=== PATIENT | male | born 1960 | race American Indian/Alaskan Native ===

== ENCOUNTER 2018-09-14 21:52 | Emergency (ER) | payer SELFPAY ==
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
[2018-09-14] MEDS ORDERED: PERCOCET 5/325 PO ONE (22:11)
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
[2018-09-14 23:17] VITALS: BP 141/80
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
== END 2018-09-15 00:27 | disposition home or self-care (01) ==
LOC: ED 21:52
DX: S16.1XXA Strain of muscle, fascia and tendon at neck level, initial encounter (principal); F17.200 Nicotine dependence, unspecified, uncomplicated; V49.49XA Driver injured in collision with other motor vehicles in traffic accident, initial encounter; Y93.89 Activity, other specified; Y92.488 Other paved roadways as the place of occurrence of the external cause; Y99.8 Other external cause status
CPT/HCPCS: 70450; 71045; 72125; 99284

== ENCOUNTER 2021-03-28 02:48 | Observation (INO) | payer OTHER ==
[2021-03-28] MEDS ORDERED: ASPIRIN 325 MG TAB PO ONE (03:07)
[2021-03-28] MEDS ORDERED: NITROGLYCERIN 0.4 MG TAB SUBL SL ONE (03:36)
[2021-03-28 03:39] LABS: Basophils % (Auto) 0.6 % (0.0-1.8); Eosinophils # (Auto) 0.1 K/mm3 (0.0-0.4); Eosinophils % (Auto) 2.4 % (0.0-4.3); Hematocrit 41.7 % (35.5-45.6); Hemoglobin 13.9 gm/dl (11.8-15.2); Lymphocytes # (Auto) 2.1 K/mm3 (1.2-5.4); Lymphocytes % (Auto) 34.2 % (13.4-35.0); Mean Corpuscular HGB Conc 34 % (32-34); Mean Corpuscular Volume 96 fl (84-94); Monocytes # (Auto) 0.7 K/mm3 (0.0-0.8); Monocytes % (Auto) 11.3 % (0.0-7.3); Platelet Count 210 K/mm3 (140-440); Red Blood Count 4.35 M/mm3 (3.65-5.03); Red Cell Distribution Width 13.1 % (13.2-15.2)
--- NOTE | 2021-03-28 03:39 | Emergency Department Report ---
ED Chest Pain HPI - General Chief Complaint: Chest Pain Stated Complaint: chest pain Time Seen by Provider: 03/28/21 03:23 Source: patient Mode of arrival: Ambulatory Limitations: No Limitations - History of Present Illness Initial Comments: Patient is 60 years old male with no significant past medical history. Patient presented to the emergency room complaining of left sided chest pain, heaviness in nature with radiation to the left upper extremity. Patient stated that pain started after he finished work. Patient stated that he never had any pain like this before. Patient denied any fever or chills. No shortness of breath. MD Complaint: chest pain -: Last night Onset: during rest Pain Location: left chest Pain Radiation: LUE Severity: moderate Severity scale (0 -10): 8 Quality: tightness, heaviness Consistency: constant Improves With: nothing Worsens With: nothing - Related Data Previous Rx's Medication Instructions Recorded Last Taken Type Cyclobenzaprine [Flexeril] 10 mg PO TID PRN #20 tablet 09/15/18 Unknown Rx Ibuprofen [Motrin] 800 mg PO Q8HR PRN #20 tablet 09/15/18 Unknown Rx Allergies Allergy/AdvReac Type Severity Reaction Status Date / Time No Known Allergies Allergy Verified 03/28/21 03:27 Heart Score - HEART Score History: Moderately suspicious EKG: Non-specific Age: 45-65 Risk factors: 1-2 risk factors Troponin: < normal limit HEART Score: 4 - EKG Read Time Time EKG Completed: 02:55 EKG Read Time: 02:58 - Critical Actions Critical Actions: 4-6 pts:12-16.6% risk of adverse cardiac event. Should be admitted ED Review of Systems ROS: Stated complaint: chest pain Other details as noted in HPI Comment: All other systems reviewed and negative Constitutional: denies: chills, fever Respiratory: denies: cough, shortness of breath, SOB with exertion Cardiovascular: chest pain. denies: palpitations, dyspnea on exertion Musculoskeletal: denies: back pain Neurological: denies: headache, weakness, numbness, paresthesias, confusion ED Past Medical Hx - Past Medical History Previous Medical History?: No - Surgical History Past Surgical History?: No - Social History Smoking Status: Current Every Day Smoker Substance Use Type: None - Medications Home Medications: Home Medications Medication Instructions Recorded Confirmed Last Taken Type Cyclobenzaprine [Flexeril] 10 mg PO TID PRN #20 tablet 09/15/18 Unknown Rx Ibuprofen [Motrin] 800 mg PO Q8HR PRN #20 tablet 09/15/18 Unknown Rx ED Physical Exam - General Limitations: No Limitations General appearance: alert, in no apparent distress - Head Head exam: Present: atraumatic, normocephalic, normal inspection - Eye Eye exam: Present: normal appearance - ENT ENT exam: Present: normal exam, normal orophraynx, mucous membranes moist - Neck Neck exam: Present: normal inspection, full ROM. Absent: tenderness, meningismus - Respiratory Respiratory exam: Present: normal lung sounds bilaterally - Cardiovascular Cardiovascular Exam: Present: regular rate, normal rhythm, normal heart sounds - GI/Abdominal GI/Abdominal exam: Present: soft, normal bowel sounds. Absent: distended, tenderness, guarding, rebound, rigid, organomegaly, mass, bruit, pulsatile mass, hernia - Extremities Exam Extremities exam: Present: normal inspection, full ROM, normal capillary refill. Absent: pedal edema, calf tenderness - Back Exam Back exam: Present: normal inspection, full ROM. Absent: CVA tenderness (R), CVA tenderness (L) - Neurological Exam Neurological exam: Present: alert, oriented X3, CN II-XII intact - Psychiatric Psychiatric exam: Present: normal mood - Skin Skin exam: Present: warm, intact, normal color ED Course Vital Signs 03/28/21 03/28/21 03/28/21 03:05 03:18 03:46 Temperature 98.2 F Pulse Rate 65 64 62 Respiratory 18 23 16 Rate Blood Pressure 123/69 157/89 O2 Sat by Pulse 100 100 100 Oximetry 03/28/21 03:56 Temperature Pulse Rate 68 Respiratory Rate Blood Pressure 157/89 O2 Sat by Pulse Oximetry ED Medical Decision Making - Lab Data Result diagrams: 03/28/21 03:29 03/28/21 03:29 - EKG Data -: EKG Interpreted by Ak EKG shows normal: sinus rhythm Rate: normal - EKG Data Interpretation: no acute changes - Radiology Data Radiology results: report reviewed - Medical Decision Making Patient is 60 years old male with no significant past medical history. Patient presented to the emergency room complaining of left sided chest pain, heaviness in nature with radiation to the left upper extremity. Patient stated that pain started after he finished work. Patient stated that he never had any pain like this before. Patient denied any fever or chills. No shortness of breath. EKG showed no ST elevation. Chest x-ray is unremarkable. Labs reviewed and is negative including first troponin. Patient received aspirin and nitroglycerin and stated that his pain is better. Discussed the patient with Dr. Flores, he agreed to admit the patient to medical service for further management. Critical care attestation.: If time is entered above; I have spent that time in minutes in the direct care of this critically ill patient, excluding procedure time. ED Disposition Clinical Impression: Acute chest pain Disposition: 09 OP ADMIT IP TO THIS HOSP Is pt being admited?: Yes Condition: Stable Instructions: Chest Pain (ED) Referrals: PRIMARY CARE, [Primary Care Provider] - 3-5 Days
--- NOTE | 2021-03-28 03:42 | XRay Report ---
CHEST 2 VIEWS INDICATION / CLINICAL INFORMATION: Chest pain. COMPARISON: 09/14/18. FINDINGS: SUPPORT DEVICES: None. HEART / MEDIASTINUM: The heart size and pulmonary vasculature are normal. The aorta is normal in [place]per daniel. LUNGS / PLEURA: No significant pulmonary or pleural abnormality. No pneumothorax. ADDITIONAL FINDINGS: No significant additional findings. IMPRESSION: No acute abnormality or significant change. Signer Name: Randy Chaparro MD Signed: 03/28/2021 3:37 AM Workstation Name: [id number]
[2021-03-28 04:07] LABS: Alanine Aminotransferase 13 units/L (7-56); Albumin 4.1 g/dL (3.9-5); BUN/Creatinine Ratio 12; Blood Urea Nitrogen 13 mg/dL (9-20); Calcium 8.8 mg/dL (8.4-10.2); Hemolysis Index 31
[2021-03-28] MEDS ORDERED: ALUM-MAG HYDROXIDE-SIMETHICONE 200-200-20MG/5ML ORAL LIQD 30 ML PO PRN (05:02)
[2021-03-28] MEDS ORDERED: METOCLOPRAMIDE 10 MG/2 ML INJ IV PRN (05:02)
[2021-03-28] MEDS ORDERED: traMADol 50 MG TAB PO PRN (05:02)
[2021-03-28] MEDS ORDERED: NITROGLYCERIN 0.4 MG TAB SUBL SL PRN (05:02)
[2021-03-28] MEDS ORDERED: SENNOSIDES 8.6 MG TAB PO PRN (05:02)
[2021-03-28] MEDS ORDERED: ONDANSETRON 4 MG/2 ML INJ IV PRN (05:02)
[2021-03-28] MEDS ORDERED: ACETAMINOPHEN 325 MG TAB PO PRN ×2 (05:02)
[2021-03-28] MEDS ORDERED: MAGNESIUM HYDROXIDE (MOM) ORAL LIQD UDC PO PRN (05:02)
[2021-03-28] MEDS ORDERED: traZODone 50 MG TAB PO PRN (05:09)
[2021-03-28] MEDS ORDERED: hydrALAZINE 20 MG/1 ML INJ IV PRN ×2 (05:09→06:04)
--- NOTE | 2021-03-28 05:19 | History and Physical Report ---
History of Present Illness Date of examination: 03/28/21 Date of admission: 03/28/21 Chief complaint: Chest pain History of present illness: Patient is 60 years old male with no significant past medical history. Patient presented to the emergency room complaining of left sided chest pain, heaviness in nature with radiation to the left upper extremity. Patient stated that pain started after he finished work. Patient stated that he never had any pain like this before. Patient denied any fever or chills. No shortness of breath. ED work-up shows WBC 6.2, hemoglobin 13.9, platelets 210 sodium 139, potassium 4.5, creatinine 1.1, serum glucose 69, calcium 8.8. EKG checks x-ray and troponin are all negative. Patient seen at bedside in the ED. Patient on room air. Patient admits chest pain like pressure pain that radiates to the left shoulder and to the left. Pain level 8/10. I reviewed lab, medication record, and vital signs. Blood pressure is mildly elevated patient denies history of hypertension. He admits tobacco use but denies chronic alcohol use or illicit drug. Echocardiogram ordered and homemaking rehabilitation consultant consulted. Past History Past Surgical History: No surgical history Social history: smoking Family history: no significant family history Medications and Allergies Allergies Allergy/AdvReac Type Severity Reaction Status Date / Time No Known Allergies Allergy Verified 03/28/21 03:27 Home Medications Medication Instructions Recorded Confirmed Last Taken Type Cyclobenzaprine [Flexeril] 10 mg PO TID PRN #20 tablet 09/15/18 Unknown Rx Ibuprofen [Motrin] 800 mg PO Q8HR PRN #20 tablet 09/15/18 Unknown Rx Active Meds: Active Medications Acetaminophen (Acetaminophen 325 Mg Tab) 650 mg PO Q4H PRN PRN Reason: Pain MILD(1-3)/Fever >100.5/GEORGE Acetaminophen (Acetaminophen 325 Mg Tab) 650 mg PO Q6H PRN PRN Reason: Pain, Mild (1-3) Al Hydrox/Mg Hydrox/Simethicone (Alum-Mag Hydroxide-Simethicone [phone]/5ml Oral Liqd 30 Ml) 30 ml PO Q4H PRN PRN Reason: Indigestion Aspirin (Aspirin 81 Mg Tab Chew) 81 mg PO QDAY MARC Atorvastatin Calcium (Atorvastatin 40 Mg Tab) 40 mg PO QHS MARC Famotidine (Famotidine 20 Mg/2 Ml Inj) 20 mg IV BID MARC Hydralazine HCl (Hydralazine 20 Mg/1 Ml Inj) 5 mg IV Q4HR PRN PRN Reason: Hypertension Magnesium Hydroxide (Magnesium Hydroxide (Mom) Oral Liqd Udc) 30 ml PO Q4H PRN PRN Reason: Constipation Metoclopramide HCl (Metoclopramide 10 Mg/2 Ml Inj) 10 mg IV Q6H PRN PRN Reason: Nausea And Vomiting Nitroglycerin (Nitroglycerin 0.4 Mg Tab Subl) 0.4 mg SL Q5M PRN PRN Reason: Chest Pain Ondansetron HCl (Ondansetron 4 Mg/2 Ml Inj) 4 mg IV Q8H PRN PRN Reason: Nausea And Vomiting Senna (Sennosides 8.6 Mg Tab) 8.6 mg PO Q12HR PRN PRN Reason: Constipation Sodium Chloride (Sodium Chloride 0.9% 10 Ml Flush Syringe) 10 ml IV BID MARC Sodium Chloride (Sodium Chloride 0.9% 10 Ml Flush Syringe) 10 ml IV PRN PRN PRN Reason: LINE FLUSH Tramadol HCl (Tramadol 50 Mg Tab) 50 mg PO Q6H PRN PRN Reason: Pain, Moderate (4-6) Trazodone HCl (Trazodone 50 Mg Tab) 50 mg PO QHS PRN PRN Reason: Insomnia Review of Systems Ears, nose, mouth and throat: no epistaxis, no bleeding gums Cardiovascular: chest pain, rapid/irregular heart beat Respiratory: no hemoptysis Gastrointestinal: no abdominal pain Genitourinary Male: no hematuria Rectal: no hemorrhoids Musculoskeletal: no neck stiffness Neurological: no vertigo, no headaches Psychiatric: no memory loss Endocrine: no thyroid mass Hematologic/Lymphatic: no easy bruising, no easy bleeding Allergic/Immunologic: no urticaria Exam - Constitutional Vitals: Temp Pulse Resp BP Pulse Ox 98.2 F 68 16 157/89 100 03/28/21 03:05 03/28/21 03:56 03/28/21 03:46 03/28/21 03:56 03/28/21 03:46 General appearance: Present: mild distress, well-nourished - EENT Eyes: Present: PERRL ENT: hearing intact, clear oral mucosa - Neck Neck: Present: supple, normal ROM - Respiratory Respiratory effort: normal Respiratory: bilateral: CTA - Cardiovascular Heart rate: 68 Heart Sounds: Present: S1 & S2. Absent: rub, click - Extremities Extremities: pulses symmetrical, No edema Peripheral Pulses: within normal limits - Abdominal General gastrointestinal: Present: soft, non-tender, non-distended, normal bowel sounds Male genitourinary: Present: normal - Integumentary Integumentary: Present: clear, warm, dry - Musculoskeletal Musculoskeletal: gait normal, strength equal bilaterally - Psychiatric Psychiatric: appropriate mood/affect, intact judgment & insight, cooperative - Neurologic Neurologic: CNII-XII intact, moves all extremities - Allied Health Allied health notes reviewed: nursing HEART Score - HEART Score EKG: Non-specific Age: 45-65 Risk factors: 1-2 risk factors Troponin: Troponin T < 0.010 ng/mL (0.00-0.029) 03/28/21 03:29 Troponin: < normal limit - Critical Actions Critical Actions: 4-6 pts:12-16.6% risk of adverse cardiac event. Should be admitted Results - Labs CBC & Chem 7: 03/28/21 03:29 03/28/21 03:29 Labs: Abnormal lab results 03/28/21 03/28/21 Range/Units 03:29 03:29 MCV 96 H (84-94) fl RDW 13.1 L (13.2-15.2) % [place] % (Auto) 11.3 H (0.0-7.3) % Carbon Dioxide 31 H (22-30) mmol/L Glucose 69 L (75-100) mg/dL Assessment and Plan - Patient Problems (1) Acute chest pain Current Visit: Yes Status: Acute Plan to address problem: sublingual ntro, ASA, statin and PRN oxygen supplement ECHOCARDIOGRAM-f/u with result Housekeeping Associate consulted Chest x-ray, EKG and troponin -all negative Patient on room air. Chest Pain level 8/10 (2) Tobacco use Current Visit: Yes Status: Acute Plan to address problem: discussed tobacco use cessation cardiovascular and neoplasm syndrome of tobacco use explained to pation Patient voiced understanding (3) Elevated blood-pressure reading without diagnosis of hypertension Current Visit: Yes Status: Acute Plan to address problem: Likely secondary to left sided chest pain/anxiety Patient denies any history of high blood pressure Monitor blood pressure PRN hydrazine (4) DVT prophylaxis Current Visit: Yes Status: Acute Plan to address problem: Subcutaneous Lovenox
--- NOTE | 2021-03-28 09:14 | Consultation ---
History of Present Illness Consult date: 03/28/21 Requesting physician: VIKTOR MCCLELLAN Consult reason: chest pain History of present illness: Pt is a 60-year-old AA male, previously unknown to our practice, who presented with complaints of chest wall "soreness" that started last night. Pt states he was lifting some heavy objects at work yesterday and believes this contributed to his pain. He reports the pain has been constant since last night, mostly on the left side of his chest wall and up to his left shoulder. Worse with deep inspiration. Pain is reproducible with palpation of the chest wall as well. No additional cardiac complaints. Trop neg x 1. ECG reveals NSR, no acute ischemic changes. HEART Score: 2 Past History Past Medical History: No medical history Past Surgical History: No surgical history Social history: smoking. denies: alcohol abuse Family history: no significant family history Medications and Allergies Allergies Allergy/AdvReac Type Severity Reaction Status Date / Time No Known Allergies Allergy Verified 03/28/21 03:27 Home Medications Medication Instructions Recorded Confirmed Last Taken Type Cyclobenzaprine [Flexeril] 10 mg PO TID PRN #20 tablet 09/15/18 Unknown Rx Ibuprofen [Motrin] 800 mg PO Q8HR PRN #20 tablet 09/15/18 Unknown Rx Active Meds: Active Medications Acetaminophen (Acetaminophen 325 Mg Tab) 650 mg PO Q4H PRN PRN Reason: Pain MILD(1-3)/Fever >100.5/GEORGE Al Hydrox/Mg Hydrox/Simethicone (Alum-Mag Hydroxide-Simethicone 200-540-97pr/5ml Oral Liqd 30 Ml) 30 ml PO Q4H PRN PRN Reason: Indigestion Aspirin (Aspirin 81 Mg Tab Chew) 81 mg PO QDAY MARC Atorvastatin Calcium (Atorvastatin 40 Mg Tab) 40 mg PO QHS [facility] Enoxaparin Sodium (Enoxaparin 40 Mg/0.4 Ml Inj) 40 mg SUB-Q DAILY [facility]; Protocol Last Admin: 03/28/21 09:00 Dose: 40 mg Documented by: Famotidine (Famotidine 20 Mg/2 Ml Inj) 20 mg IV BID MARC Last Admin: 03/28/21 09:00 Dose: 20 mg Documented by: Hydralazine HCl (Hydralazine 20 Mg/1 Ml Inj) 5 mg IV Q4HR PRN PRN Reason: SBP >/=160; DBP >/=100 Magnesium Hydroxide (Magnesium Hydroxide (Mom) Oral Liqd Udc) 30 ml PO Q4H PRN PRN Reason: Constipation Metoclopramide HCl (Metoclopramide 10 Mg/2 Ml Inj) 10 mg IV Q6H PRN PRN Reason: Nausea And Vomiting Nitroglycerin (Nitroglycerin 0.4 Mg Tab Subl) 0.4 mg SL Q5M PRN PRN Reason: Chest Pain Last Admin: 03/28/21 06:00 Dose: 0.4 mg Documented by: Ondansetron HCl (Ondansetron 4 Mg/2 Ml Inj) 4 mg IV Q8H PRN PRN Reason: Nausea And Vomiting Senna (Sennosides 8.6 Mg Tab) 8.6 mg PO Q12HR PRN PRN Reason: Constipation Sodium Chloride (Sodium Chloride 0.9% 10 Ml Flush Syringe) 10 ml IV BID MARC Last Admin: 03/28/21 09:00 Dose: 10 ml Documented by: Sodium Chloride (Sodium Chloride 0.9% 10 Ml Flush Syringe) 10 ml IV PRN PRN PRN Reason: LINE FLUSH Tramadol HCl (Tramadol 50 Mg Tab) 50 mg PO Q6H PRN PRN Reason: Pain, Moderate (4-6) Trazodone HCl (Trazodone 50 Mg Tab) 50 mg PO QHS PRN PRN Reason: Insomnia Review of Systems Constitutional: no fever, no chills, no sweats, no fatigue Ears, nose, mouth and throat: no nasal congestion, no sore throat Cardiovascular: chest pain, no orthopnea, no palpitations, no rapid/irregular heart beat, no edema, no syncope, no lightheadedness, no shortness of breath, no dyspnea on exertion, no paroxysmal nocturnal dyspnea, no claudication Respiratory: no cough, no shortness of breath, no dyspnea on exertion Gastrointestinal: no abdominal pain, no nausea, no vomiting, no diarrhea, no constipation Genitourinary Male: no dysuria, no flank pain Musculoskeletal: no neck stiffness, no neck pain, no myalgias Integumentary: no rash, no wounds Neurological: no head injury, no paralysis, no weakness, no parathesias, no numbness, no tingling, no seizures, no syncope, no vertigo, no headaches Endocrine: no cold intolerance, no heat intolerance, no polydipsia, no polyuria Hematologic/Lymphatic: no easy bruising, no easy bleeding Allergic/Immunologic: no urticaria, no wheezing Physical Examination Last Vital Signs Temp 99.3 F 03/28/21 07:56 Pulse 75 03/28/21 07:56 Resp 18 03/28/21 07:56 BP 128/84 03/28/21 07:56 Pulse Ox 97 03/28/21 07:56 General appearance: no acute distress HEENT: Positive: EOMI, Normocephaly, Mucus Membranes Moist Neck: Positive: neck supple, trachea midline. Negative: JVD/HJR Cardiac: Positive: Reg Rate and Rhythm, S1/S2. Negative: Audible Murmur Lungs: Positive: clear to auscultation Neuro: Positive: Grossly Intact Abdomen: Positive: Soft, Active Bowel Sounds. Negative: Tender Skin: Negative: Rash Musculoskeletal: Normal Range of Motion Extremities: Present: upper extr. pulses, lower extr. pulses. Absent: edema Results 03/28/21 03:29 03/28/21 03:29 Cardiac Enzymes 03/28/21 Range/Units 03:29 AST 15 (5-40) units/L CBC 03/28/21 Range/Units 03:29 WBC 6.2 (4.5-11.0) K/mm3 RBC 4.35 (3.65-5.03) M/mm3 Hgb 13.9 (11.8-15.2) gm/dl Hct 41.7 (35.5-45.6) % Plt Count 210 (140-440) K/mm3 Lymph # (Auto) 2.1 (1.2-5.4) K/mm3 [place]ley # (Auto) 0.7 (0.0-0.8) K/mm3 Eos # (Auto) 0.1 (0.0-0.4) K/mm3 Baso # (Auto) 0.0 (0.0-0.1) K/mm3 Comprehensive Metabolic Panel 03/28/21 Range/Units 03:29 Sodium 139 (137-145) mmol/L Potassium 4.5 (3.6-5.0) mmol/L Chloride 100.0 (98-107) mmol/L Carbon Dioxide 31 H (22-30) mmol/L BUN 13 (9-20) mg/dL Creatinine 1.1 (0.8-1.3) mg/dL Glucose 69 L (75-100) mg/dL Calcium 8.8 (8.4-10.2) mg/dL AST 15 (5-40) units/L ALT 13 (7-56) units/L Alkaline Phosphatase 70 (35-129) units/L Total Protein 6.4 (6.3-8.2) g/dL Albumin 4.1 (3.9-5) g/dL - Imaging and Cardiology Echo: pending EKG: report reviewed, image reviewed - EKG Interpretation EKG: no acute changes EKG interpretations - Telemetry EKG Rhythm: Sinus Rhythm - EKG Sinus rhythms and dysrhythmias: sinus rhythm Assessment and Plan Lexiscan stress MPI this AM noted to be negative for ischemia. Recommend anti-inflammatory therapy. Smoking cessation d/w pt at bedside. Pt verbalized understanding. Otherwise stable cardiac status. Pt may be discharged from a Cardiology perspective. Recommend follow-up with PCP within 1-2 weeks of discharge. Pt seen in conjunction with Dr. Hughes, who agrees with the assessment and plan of care. - Patient Problems (1) Atypical chest pain Current Visit: Yes Status: Acute (2) Tobacco abuse Current Visit: Yes Status: Chronic
[2021-03-28] MEDS ORDERED: ENOXAPARIN 40 MG/0.4 ML INJ SUB-Q SCH (10:00)
[2021-03-28] MEDS ORDERED: FAMOTIDINE 20 MG/2 ML INJ IV SCH (10:00)
[2021-03-28] MEDS ORDERED: REGADENOSON 0.4 MG/5 ML INJ IV ONE ×2 (10:15→10:19)
--- NOTE | 2021-03-28 10:54 | Electrocardiograph Report ---
[facility] Test Date: 2021-03-28 Test Time: 02:55:42 Pat Name: ROMEO QUEEN Department: Room: A484 1 Gender: M Mathematician: JYOTI : 1960 Requested By: SONY COOPER Order Number: [id number] Reading MD: Austin Mccarty Measurements Intervals [place] Rate: 60 P: 65 MO: 140 QRS: 38 QRSD: 90 T: 57 QT: 420 QTc: 418 Interpretive Statements Sinus rhythm No previous ECG available for comparison Electronically Signed On 03-28-2021 10:54:18 EDT by Austin Mccarty
--- NOTE | 2021-03-28 10:55 | Electrocardiograph Report ---
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
--- NOTE | 2021-03-28 10:56 | Electrocardiograph Report ---
[facility] Test Date: 2021-03-28 Test Time: 10:37:09 Pat Name: RMOEO QUEEN Department: Room: A484 1 Gender: M Director Software: HUMBERTO : 1960 Requested By: VIKTOR MCCLELLAN Order Number: [id number] Reading MD: Austin Mccarty Measurements Intervals [place] Rate: 68 P: 36 [place]: 154 QRS: -14 QRSD: 86 T: 21 QT: 398 QTc: 423 Interpretive Statements Sinus rhythm Compared to ECG 03/28/2021 06:05:20 Electronically Signed On 03-28-2021 10:56:16 EDT by Austin Mccarty
[2021-03-28 11:45] VITALS: BP 129/75
--- NOTE | 2021-03-28 11:45 | Nuclear Medicine Report ---
APPROVED REPORT Exam: Nuclear Stress Test Indication: Chest pain Patient Location: [address] [place] [address] Room #: 484 Ht: 5 ft 10 in Wt: 164 lbs BSA: 1.92 m2 HR: 66 bpm BP: 122/74 mmHg BMI: 23.52 Stress Test Details Stress Test: Pharmacologic stress testing performed using 0.4 mg of regadenoson per 5 mL given IV over 10 seconds. Reason for pharmacologic stress test: physical limitation. HR Resting HR: 66 bpmMax Heart Rate (APMHR): 158 bpm Max HR Achieved: 96 bpmTarget HR (85% APMHR): 134 bpm % of APMHR: 60 Recovery HR: 77 bpm BP Resting BP: 122/74 mmHg Max BP: 129/75 mmHg Recovery BP: 106/67 mmHg ECG Resting ECG: Sinus Rhythm Clinical Reason for Termination: Completed protocol Stress Symptoms: None NM EXAM: Myocardial Perfusion REST/STRESS Imaging Protocol: Rest Tc-99m/Stress Tc-99m 1 day Resting Data Rest SPECT myocardial perfusion imaging was performed in supine position 45 minutes following the intravenous injection of 10 mCi of Tc-99m Myoview. Time of rest injection: 0845 Pharmacologic Stress Pharmacologic stress test was performed by injecting Regadenoson 0.4 mg IV push followed by the intravenous injection of 28 mCi of Tc-99m Myoview. Time of stress injection: 1019 Gated Stress SPECT was performed 30 minutes after stress injection. The images were gated to evaluate regional wall motion and calculate left ventricular ejection fraction. Study Data TID = 1.09. Perfusion Nuclear Conclusion ECG Findings: negative for ischemia Clinical Findings: negative for ischemia Nuclear Findings: negative for ischemia Exercise Capacity: not assessed Left Ventricular Function: normal Normal study. No scintigraphic evidence for myocardial ischemia or scar. Normal left ventricular size and function with no regional wall motion abnormalities.
--- NOTE | 2021-03-28 11:50 | Discharge Summary ---
Providers - Providers Date of Admission: 03/28/21 04:47 Date of discharge: 03/28/21 Attending physician: HARSHIL LUONG 03/28/21 Consult to Cardiac Rehabilitation [CONS] Routine Reason For Exam: Phase I 03/28/21 05:02 Consult to Physician [CONS] Stat Comment: Consulting Provider: YAAKOV HONG Physician Instructions: Reason For Exam: chest pain Primary care physician: MIXED LIVESTOCK FARMER Hospitalization Condition: Stable Hospital course: Patient is 60 years old male with no significant past medical history. Patient presented to the emergency room complaining of left sided chest pain, heaviness in nature with radiation to the left upper extremity. Patient stated that pain started after he finished work. Patient stated that he never had any pain like this before. Patient denied any fever or chills. No shortness of breath. ED work-up shows WBC 6.2, hemoglobin 13.9, platelets 210 sodium 139, potassium 4.5, creatinine 1.1, serum glucose 69, calcium 8.8. EKG checks x-ray and troponin are all negative. Patient seen at bedside in the ED. Patient on room air. Patient admits chest pain like pressure pain that radiates to the left shoulder and to the left. Pain level 8/10. I reviewed lab, medication record, and vital signs. Blood pressure is mildly elevated patient denies history of hypertension. He admits tobacco use but denies chronic alcohol use or illicit drug. Echocardiogram ordered and assembler lay ups consulted Hospital course Patient was admitted to the hospital and cardiology was consulted. Patient had a stress test that showed no reversible ischemia. Patient has reproducible chest pain. He will be discharged on anti-inflammatory agents for now. He will need to follow-up with primary medical doctor 1 to 2 weeks. He agrees with plan Disposition: DC-01 TO HOME OR SELFCARE Final Discharge Diagnosis (Prints w/discharge instructions): Chest pain-likely musculoskeletal Time spent for discharge: 25 minutes Core Measure Documentation - Palliative Care Palliative Care/ Comfort Measures: Not Applicable - Core Measures Any of the following diagnoses?: none Exam - Physical Exam Narrative exam: VITAL SIGNS: Reviewed. GENERAL: Awake HEAD: No signs of head trauma. EYES: Pupils are equal. Extraocular motions intact. MOUTH: Oropharynx is normal. NECK: No adenopathy, no JVD. CHEST: Chest with diminished breath sounds bilaterally. No wheezes, rales, or rhonchi. CARDIAC: normal S1 and S2, without murmurs, gallops, or rubs. ABDOMEN: Soft, non tender and non distended. No rebound or guarding, and no masses palpated. Bowel Sounds normal. MUSCULOSKELETAL: No edema NEUROLOGIC EXAM: Alert and oriented x3. No focal neurologic deficits SKIN: No obvious lesions - Constitutional Vitals: Temp Pulse Resp BP Pulse Ox 99.3 F 75 18 129/75 97 03/28/21 07:56 03/28/21 07:56 03/28/21 07:56 03/28/21 10:23 03/28/21 07:56 Plan Diet: regular Additional Instructions: Continue naproxen as needed. Follow-up with PCP 1 to 2 weeks Follow up with: PRIMARY CAREMD [Primary Care Provider] - 3-5 Days Prescriptions: Naproxen 500 mg PO BID #3 tablet
[2021-03-29] MEDS ORDERED: ASPIRIN 81 MG TAB CHEW PO SCH (10:00)
--- NOTE | 2021-03-29 11:07 | Treadmill Report ---
[facility] Test Date: 2021-03-28 Test Time: 08:07:35 Pat Name: ROMEO QUEEN Department: Room: A484 1 Gender: M Rooter Operator: Eliza Hooks : 1960 Requested By: HARSHIL LUONG Order Number: [id number] Reading MD: Александр Hughes Interpretive Statements negative lexiscan ekg imaging pending Electronically Signed On 03-29-2021 11:07:08 EDT by Александр Hughes
== END 2021-03-28 13:26 | disposition home or self-care (01) ==
LOC: ED 02:48 → 4A 04:47
PROVIDERS: ADMIT Internal Medicine Geriatric Medicine; ATTEND Internal Medicine
DX: R07.89 Other chest pain (principal); R03.0 Elevated blood-pressure reading, without diagnosis of hypertension; F17.210 Nicotine dependence, cigarettes, uncomplicated; Z79.82 Long term (current) use of aspirin; Z79.899 Other long term (current) drug therapy
CPT/HCPCS: 36415; 71046; 78452; 80053; 83036; 84484; 85025; 93005; 93017; 93306; 96372; 96374; 99285; A9502; G0378; J1650; J2785